=== PATIENT | male | born 1955 | race Caucasian/White ===

== ENCOUNTER 2017-05-11 12:25 | Inpatient (IN) ==
--- NOTE | 2017-05-11 12:32 | Emergency Department Note ---
Disposition Clinical Impression: Suicidal ideation Depression Qualifiers: Depression Type: unspecified Qualified Code(s): F32.9 - Major depressive disorder, single episode, unspecified Disposition: Admitted As Inpatient Condition: Fair Forms: ED Satisfaction Letter Time of Disposition: 16:36 Psych HPI - General Chief Complaint: ED Psychiatric Symptoms Stated Complaint: SI Time Seen by Provider: 05/11/17 12:29 Source: patient Mode of arrival: ambulatory Limitations: no limitations Nursing Notes Reviewed: Yes Vital Signs Reviewed: Yes - History of Present Illness HPI Narrative: 62-year-old who states she is under a lot of stress is losing his job today, his mother year ago, he was kicked out of the house by other family members. The patient states he doesn't feel that he no on any further. Pt complaint: suicidal ideation, feels depressed If medical clearance, reason: psychiatric condition Onset (ago): Just [place] Duration: constant Improves with: none Worsens with: none Context: significant life stressor Alleged intoxication: No Associated Psychiatric Symptoms: depression, suicidal ideation Associated symptoms: Reports: denies other symptoms Traumatic symptoms: denies traumatic injury Treatments prior to arrival: none Self harm or harm to others: admits thoughts of self harm - Related Data Home Medications Medication Instructions Recorded Confirmed ALPRAZolam [Xanax 1 MG Tablet] 1 mg PO TID PRN 05/11/17 05/11/17 BuPROPion XL (24 HR) [Wellbutrin 150 mg PO DAILY 05/11/17 05/11/17 XL] Carisoprodol [Soma] 350 mg PO BID 05/11/17 05/11/17 Chlorthalidone 25 mg PO DAILY 05/11/17 05/11/17 Cholecalciferol (Vitamin D3) 4,000 unit PO DAILY 05/11/17 05/11/17 [Vitamin D3] Ginkgo Biloba 120 mg PO DAILY 05/11/17 05/11/17 HYDROcodone/Acet 5/325 mg [[place] 1 tab PO BID PRN 05/11/17 05/11/17 5-325 mg] Lisinopril/Hydrochlorothiazide 1 each PO BID 05/11/17 05/11/17 [Zestoretic 20-12.5 mg Tablet] [place]-3/Dha/Epa/Fish Oil [Fish Oil 1,000 mg PO DAILY 05/11/17 05/11/17 1,000 mg Softgel] Zolpidem [Ambien] 10 mg PO HS 05/11/17 05/11/17 amLODIPine [Norvasc] 5 mg PO DAILY 05/11/17 05/11/17 Allergies Allergy/AdvReac Type Severity Reaction Status Date / Time Penicillins [PCN] Allergy See Unverified 04/08/16 14:37 Comments All systems ED: reviewed and negative except as stated. Constitutional: Denies: fever, chills, weakness, weight change Eyes: Denies: eye pain, eye discharge, vision change ENT ED: Denies: ear pain, throat pain, dental pain, hearing loss, epistaxis, congestion, dysphagia Cardiovascular: Denies: chest pain, palpitations, dyspnea on exertion, edema, syncope Respiratory: Denies: cough, dyspnea, wheezes, hemoptysis, stridor Gastrointestinal: Denies: abdominal pain, nausea, vomiting, diarrhea, constipation, hematemesis, melena, hematochezia Genitourinary: Denies: urgency, dysuria, frequency, hematuria Musculoskeletal: Denies: back pain, neck pain, arthralgia, myalgia Integumentary: Denies: rash, abrasion, lesions Neurological: Denies: headache, weakness, numbness, paresthesias, confusion, abnormal gait, vertigo Psychiatric: Reports: depression, suicidal thoughts. Denies: anxiety, homicidal thoughts, auditory hallucinations, visual hallucinations Endocrine: Denies: fatigue Hematological/Lymphatic: Denies: easy bleeding, easy bruising Allergic/Immunologic: Denies: facial swelling, urticaria Past Medical History - Past Medical History Medical history: Reports: hypertension - Social History Smoking Status: Never smoker Alcohol use: Reports: occasionally Drug use: Reports: none Physical Exam - General Limitations: no limitations General appearance: alert, in no apparent distress - Head Head exam: atraumatic, normocephalic, normal inspection - Eye Eye exam: Present: normal appearance, PERRL, EOMI - ENT ENT exam: normal exam, normal oropharynx, mucous membranes moist - Neck Neck exam: Present: normal inspection, full ROM, trachea midline - Chest Chest inspection: Present: normal inspection, symmetric chest wall rise - Respiratory Respiratory exam: Present: normal lung sounds bilaterally - Cardiovascular Cardiovascular exam: Present: regular rate, normal rhythm, normal heart sounds - Abdominal Exam Abdominal exam: Present: soft, Non-Tender. Absent: tenderness, distention, guarding, rebound, rigidity - Extremities Exam Extremities exam: Present: normal inspection, full ROM. Absent: tenderness, pedal edema - Expanded Lower Extremity Exam Neurovascular/Tendon exam: Absent: motor deficit, sensory deficit, tendon deficit Gait: observed and normal - Back Exam Back exam: Present: normal inspection, full ROM. Absent: tenderness - Neurological Exam Neurological exam: Present: alert, oriented X3 - Psychiatric Psychiatric exam: Present: depressed, suicidal ideation - Skin Skin exam: Present: warm, dry, intact, normal color Course - Consultations Consultation #1: Discussed with psychiatry who will admit the patient. Time: 16:35 Vital Signs Temperature 98.3 F 05/11/17 12:26 Pulse Rate 74 05/11/17 12:26 Respiratory Rate 18 05/11/17 12:26 Blood Pressure 180/93 05/11/17 12:26 O2 Sat by Pulse Oximetry 98 05/11/17 12:26 Temperature 98.3 F 05/11/17 12:26 Pulse Rate 74 05/11/17 12:26 Respiratory Rate 18 05/11/17 12:26 Blood Pressure 180/93 05/11/17 12:26 O2 Sat by Pulse Oximetry 98 05/11/17 12:26 Oxygen Delivery Oxygen Delivery Room Air Psych - Lab Data Result diagrams: 05/11/17 13:00 05/11/17 13:00 Lab Results 05/11/17 05/11/17 05/11/17 Range/Units 13:00 13:00 13:29 WBC 9.6 (4.3-11.1) K/mcL RBC 4.91 (4.19-5.50) M/mcL Hgb 15.0 (12.9-16.9) g/dL Hct 43.8 (37.5-50.1) % MCV 89.2 (83.0-100.0) fL MCH 30.5 (28.0-33.3) pg MCHC 34.2 (31.6-35.5) g/dL RDW 12.5 (11.5-14.5) % Plt Count 246 (140-400) K/mcL MPV 8.5 L (9.4-12.4) fL Immature Gran % 0.6 (0-4) % Seg Neutrophils % 76.3 % Lymphocytes % 15.2 % Monocytes % 6.8 % Eosinophils % 0.4 % Basophils % 0.7 % Neutrophils # 7.3 (1.6-8.9) K/mcL Lymphocytes # 1.5 (0.6-4.6) K/mcL Monocytes # 0.7 (0.0-1.3) K/mcL Eosinophils # 0.0 (0.0-0.6) K/mcL Basophils # 0.1 (0.0-0.2) K/mcL Sodium 133 L (136-145) mEq/L Potassium 3.7 (3.5-4.5) mEq/L Chloride 98 (98-109) mEq/L Carbon Dioxide 26 (19-29) mEq/L BUN 10 (8-26) mg/dL Creatinine 0.83 (0.72-1.25) mg/dL Est GFR ( Amer) > 60 (> 60) Est GFR (Non-Af Amer) > 60 (> 60) BUN/Creatinine Ratio 12 (6-26) Glucose 105 H (70-99) mg/dL Calculated Osmolality 275 L (280-300) Calcium 9.9 (8.6-10.8) mg/dL Urine Color Yellow (Yellow) Urine Clarity Cloudy A (Clear) Urine pH 7.0 (5.0-8.0) pH Units Ur Specific [place] 1.015 (1.010-1.025) Urine Protein Negative (Neg-Trace) mg/dL Urine Glucose (UA) Normal (Normal) mg/dL Urine Ketones Negative (Negative) mg/dL Urine Blood Negative (Negative) Urine Nitrite Negative (Negative) Urine Bilirubin Negative (Negative) Urine Urobilinogen Normal (Normal) mg/dL Ur Leukocyte Esterase Negative (Negative) Urine Microscopic RBC 0-3 (0-3) per hpf Urine Microscopic WBC 0-3 (0-3) per hpf Ur Squamous Epith Cells None Seen (None-Few) per lpf Urine Bacteria None Seen (None-Few) per hpf Hyaline Casts None Seen (None-Few) per lpf Salicylates < 5.0 L (15-30) mg/dL Urine Opiates Screen (Rhfmne=622) ng/mL Acetaminophen 6.0 L (10-30) mcg/mL Ur Barbiturates Screen (Bepvyh=469) ng/mL Ur Phencyclidine Scrn (Cutoff=25) ng/mL Ur Amphetamines Screen (Rxcfyv=4041) ng/mL U Benzodiazepines Scrn (Xzipzb=430) ng/mL Urine Cocaine Screen (Cutoff= 300) ng/mL U Marijuana (THC) Screen (Cutoff = 50) ng/mL Ethyl Alcohol < 10 (0-10) mg/dL 05/11/17 Range/Units 13:29 WBC (4.3-11.1) K/mcL RBC (4.19-5.50) M/mcL Hgb (12.9-16.9) g/dL Hct (37.5-50.1) % MCV (83.0-100.0) fL MCH (28.0-33.3) pg MCHC (31.6-35.5) g/dL RDW (11.5-14.5) % Plt Count (140-400) K/mcL MPV (9.4-12.4) fL Immature Gran % (0-4) % Seg Neutrophils % % Lymphocytes % % Monocytes % % Eosinophils % % Basophils % % Neutrophils # (1.6-8.9) K/mcL Lymphocytes # (0.6-4.6) K/mcL Monocytes # (0.0-1.3) K/mcL Eosinophils # (0.0-0.6) K/mcL Basophils # (0.0-0.2) K/mcL Sodium (136-145) mEq/L Potassium (3.5-4.5) mEq/L Chloride (98-109) mEq/L Carbon Dioxide (19-29) mEq/L BUN (8-26) mg/dL Creatinine (0.72-1.25) mg/dL Est GFR ( Amer) (> 60) Est GFR (Non-Af Amer) (> 60) BUN/Creatinine Ratio (6-26) Glucose (70-99) mg/dL Calculated Osmolality (280-300) Calcium (8.6-10.8) mg/dL Urine Color (Yellow) Urine Clarity (Clear) Urine pH (5.0-8.0) pH Units Ur Specific [place] (1.010-1.025) Urine Protein (Neg-Trace) mg/dL Urine Glucose (UA) (Normal) mg/dL Urine Ketones (Negative) mg/dL Urine Blood (Negative) Urine Nitrite (Negative) Urine Bilirubin (Negative) Urine Urobilinogen (Normal) mg/dL Ur Leukocyte Esterase (Negative) Urine Microscopic RBC (0-3) per hpf Urine Microscopic WBC (0-3) per hpf Ur Squamous Epith Cells (None-Few) per lpf Urine Bacteria (None-Few) per hpf Hyaline Casts (None-Few) per lpf Salicylates (15-30) mg/dL Urine Opiates Screen Positive H (Rrbqsx=544) ng/mL Acetaminophen (10-30) mcg/mL Ur Barbiturates Screen Negative (Aqjtyj=114) ng/mL Ur Phencyclidine Scrn Negative (Cutoff=25) ng/mL Ur Amphetamines Screen Negative (Foocix=2469) ng/mL U Benzodiazepines Scrn Positive H (Dfskmv=071) ng/mL Urine Cocaine Screen Negative (Cutoff= 300) ng/mL U Marijuana (THC) Screen Negative (Cutoff = 50) ng/mL Ethyl Alcohol (0-10) mg/dL Psychiatric Medical Clearance - Medical Clearance Checklist Does the patient have a NEW psychiatric condition?: No Any abnormalities indicating possible medical illness?: No Any history of medical issues?: No Medical History: No Social History Section defined Any abnormal vital signs prior to transfer?: Yes Current Vitals: Last Vital Signs Temp 98.3 F 05/11/17 12:26 Pulse 74 05/11/17 12:26 Resp 18 05/11/17 12:26 BP 180/93 05/11/17 12:26 Pulse Ox 98 05/11/17 12:26 Is the patient intoxicated or cognitively impaired?: No Psychiatric Lab Panel: Drug Levels and Toxicity 05/11/17 05/11/17 13:00 13:29 Urine Opiates Screen Positive H Acetaminophen 6.0 L Ur Barbiturates Screen Negative Ur Phencyclidine Scrn Negative Ur Amphetamines Screen Negative U Benzodiazepines Scrn Positive H Urine Cocaine Screen Negative U Marijuana (THC) Screen Negative Ethyl Alcohol < 10 Any abnormalities on the physical exam?: No Any abnormal labs?: No Abnormal Labs: Abnormal lab results MPV 8.5 fL (9.4-12.4) L 05/11/17 13:00 Sodium 133 mEq/L (136-145) L 05/11/17 13:00 Glucose 105 mg/dL (70-99) H 05/11/17 13:00 Calculated Osmolality 275 (280-300) L 05/11/17 13:00 Urine Clarity Cloudy (Clear) A 05/11/17 13:29 Salicylates < 5.0 mg/dL (15-30) L 05/11/17 13:00 Urine Opiates Screen Positive ng/mL (Pnfofc=235) H 05/11/17 13:29 Acetaminophen 6.0 mcg/mL (10-30) L 05/11/17 13:00 U Benzodiazepines Scrn Positive ng/mL (Injtbr=606) H 05/11/17 13:29 Does the patient require durable medical equiptment?: No Is the patient ambulatory?: Yes Is the patient a fall risk?: No Has the patient been medically cleared?: Yes Any acute medical condition require Tx prior to transfer?: No Statement of Medical Clearance: I have evaluated the patient, reviewed diagnostic information, and certify that the patient's medical condition is sufficiently stable that transfer to the psychiatric unit does not pose a significant risk of deterioration.
[2017-05-11 13:07] LABS: Basophils # 0.1 K/mcL (0.0-0.2); Basophils % 0.7 %; Eosinophils % 0.4 %; Hematocrit 43.8 % (37.5-50.1); Immature Granulocytes % 0.6 % (0-4); Lymphocytes # 1.5 K/mcL (0.6-4.6); Lymphocytes % 15.2 %; Mean Corpuscular HGB Conc 34.2 g/dL (31.6-35.5); Mean Corpuscular Hemoglobin 30.5 pg (28.0-33.3); Mean Corpuscular Volume 89.2 fL (83.0-100.0); Mean Platelet Volume 8.5 fL (9.4-12.4); Monocytes # 0.7 K/mcL (0.0-1.3); Monocytes % 6.8 %; Neutrophils # 7.3 K/mcL (1.6-8.9); Platelet Count 246 K/mcL (140-400); Red Blood Count 4.91 M/mcL (4.19-5.50); Red Cell Distribution Width 12.5 % (11.5-14.5); Segmented Neutrophils % 76.3 %
[2017-05-11 13:25] LABS: BUN/Creatinine Ratio 12 (6-26); Blood Urea Nitrogen 10 mg/dL (8-26); Calcium 9.9 mg/dL (8.6-10.8); Carbon Dioxide 26 mEq/L (19-29); Chloride 98 mEq/L (98-109); Glucose 105 mg/dL (70-99); Osmolality,Calculated 275 (280-300); Potassium 3.7 mEq/L (3.5-4.5); Sodium 133 mEq/L (136-145); eGFR For African Americans > 60 (> 60); eGFR For Non-African Americans > 60 (> 60)
[2017-05-11 13:37] LABS: Ethanol < 10 mg/dL (0-10); Salicylate < 5.0 mg/dL (15-30)
[2017-05-11 14:12] LABS: Bilirubin,Urine Negative (Negative); Blood,Urine Negative (Negative); Clarity,Urine Cloudy (Clear); Color,Urine Yellow (Yellow); Glucose,Urine (UA) Normal (Normal); Ketones,Urine Negative (Negative); Leukocyte Esterase,Urine Negative (Negative); Nitrite,Urine Negative (Negative); Protein,Urine Negative (Neg-Trace); Specific Gravity,Urine 1.015 (1.010-1.025); Urobilinogen,Urine Normal (Normal)
[2017-05-11 14:14] LABS: Bacteria,Urine None Seen per hpf (None-Few); Hyaline Casts,Urine None Seen per lpf (None-Few); RBC,Urine 0-3 per hpf (0-3); Squamous Epithelial Cell,Urine None Seen per lpf (None-Few); WBC,Urine 0-3 per hpf (0-3)
[2017-05-11 14:19] LABS: Amphetamine Screen,Urine Negative ng/mL (Cutoff=1000); Barbiturate Screen,Urine Negative ng/mL (Cutoff=200); Benzodiazepines Screen,Urine Positive ng/mL (Cutoff=200); Cannabinoid Screen,Urine Negative ng/mL (Cutoff = 50); Cocaine Screen,Urine Negative ng/mL (Cutoff= 300); Opiate Screen,Urine Positive ng/mL (Cutoff=300); Phencyclidine Screen,Urine Negative ng/mL (Cutoff=25)
[2017-05-11] MEDS ORDERED: ALPRAZolam 1 MG TABLET PO ONE (18:25)
[2017-05-11] MEDS ORDERED: *HR* HYDROcodone/Acet 5/325 mg TABLET PO ONE (18:26)
[2017-05-11] MEDS ORDERED: MOM Conc 10 ML UD.LIQ PO PRN (21:01)
[2017-05-11] MEDS ORDERED: Acetaminophen 325 MG TABLET PO PRN (21:01)
[2017-05-11] MEDS ORDERED: traZODone 50 MG TABLET PO PRN (21:01)
[2017-05-11] MEDS ORDERED: *HR* LORazepam 2 MG/ML VIAL IM PRN (21:01)
[2017-05-11] MEDS ORDERED: *HR* LORazepam 1 MG TABLET PO PRN (21:01)
[2017-05-11] MEDS ORDERED: hydrOXYzine pamoate 25 MG CAPSULE PO PRN (21:01)
[2017-05-11] MEDS ORDERED: Mag Hydrox/Al Hydrox/Simeth 30 ML UDC PO PRN (21:01)
[2017-05-11] MEDS ORDERED: Haloperidol Lactate 5 MG/ML VIAL IM PRN (21:01)
[2017-05-11] MEDS: ALPRAZolam 1 MG TABLET PO PRN (21:56)
[2017-05-11] MEDS: Lisinopril-HCTZ 20-12.5mg TABLET PO SCH (21:56)
[2017-05-12] MEDS: BuPROPion XL (24 HR) 150 MG TABLET PO SCH (08:45)
[2017-05-12] MEDS: amLODIPine 5 MG TABLET PO SCH (08:45)
[2017-05-12] MEDS: Lisinopril-HCTZ 20-12.5mg TABLET PO SCH ×2 (08:45→20:56)
[2017-05-12] MEDS: Cholecalciferol (D-3) 1,000 UNIT TABLET PO SCH (08:45)
[2017-05-12] MEDS: GINKGO BILOBA 120 MG PO SCH (08:46)
[2017-05-12] MEDS: Patient Taking Own Medication 1 EACH PO SCH (08:46)
[2017-05-12] MEDS: Carisoprodol 350 MG TABLET PO SCH ×2 (08:46→20:56)
[2017-05-12] MEDS: *HR* HYDROcodone/Acet 5/325 mg TABLET PO PRN (12:09)
--- NOTE | 2017-05-12 13:46 | Psychiatry History & Physical ---
Date of Encounter: 05/12/17 Time of Encounter: 12:40 History of Present Illness Patient Stated Chief Complaint: Suicidal ideation Medicare Admission Attestation: For traditional Medicare patients the provided hospital inpatient services are reasonable and necessary and in the case of services not specified as inpatient -only under 42 CFR 419.22 (n), that they are appropriately provided as inpatient services in accordance 42 CFR 412.3. For Critical Access Hospital the patient may reasonably be expected to be discharged or transferred to a hospital within 96 hours after admission to the Critical Access Hospital. Admitted From: Emergency Dept History of Present Illness: Mr. Cespedes is a 62 year old male admitted from the emergency department for suicidal ideation. Patient has a long history of depression and treatment with medication, currently prescribed by PCP. Patient reported multiple stressors related to finances, living situation and work stress. He is also dealing with chronic back pain due to degenerative arthritis. Patient reports increasing depression, low energy, sense of hopelessness and suicidal ideation. His PCP referred him to the hospital for evaluation. Past Med Surg Social Fam HX - Past Medical History Medical history: hypertension - Past Psychiatric History Psychiatric history: Reports: anxiety, depression - Social History Smoking Status: Never smoker Smokeless Tobacco Status: No Alcohol use: occasionally Drug use: none - Family History Mother Hx Family Cancer: Yes (bladder) Medications & Allergies ALPRAZolam [Xanax 1 MG Tablet] 1 mg PO TID PRN 05/11/17 [History] BuPROPion XL (24 HR) [Wellbutrin XL] 150 mg PO DAILY 05/11/17 [History] Carisoprodol [Soma] 350 mg PO BID 05/11/17 [History] Chlorthalidone 25 mg PO DAILY 05/11/17 [History] Cholecalciferol (Vitamin D3) [Vitamin D3] 4,000 unit PO DAILY 05/11/17 [History] Ginkgo Biloba 120 mg PO DAILY 05/11/17 [History] HYDROcodone/Acet 5/325 mg [[place] 5-325 mg] 1 tab PO BID PRN 05/11/17 [History] Lisinopril/Hydrochlorothiazide [Zestoretic 20-12.5 mg Tablet] 1 each PO BID [History] [place]-3/Dha/Epa/Fish Oil [Fish Oil 1,000 mg Softgel] 1,000 mg PO DAILY 05/11/17 [History] Zolpidem [Ambien] 10 mg PO HS 05/11/17 [History] amLODIPine [Norvasc] 5 mg PO DAILY 05/11/17 [History] 3 Allergy/AdvReac Type Severity Reaction Status Date / Time Penicillins [PCN] Allergy Itching Verified 05/11/17 18:29 Review of Systems Psychiatric: Reports: depression, suicidal ideation, hopelessness Mental Status Exam Patient orientation: Yes Person, Yes Time, Yes Place Level of alertness: Alert Patient appearance: Appropriate, Well Groomed Behavior: calm, cooperative, guarded Psychomotor activity: Normal Eye contact: Maintains Eye Contact Mood description: Depressed Affect description: congruent with mood, constricted Speech pattern: Normal rate, Normal rhythm, Normal tone, Limited Speech volume: Normal Thought process: Linear, Goal Oriented Thought content: Yes Suicidal ideation, No Homicidal ideation, No Overt delusions Perceptual disturbances: No Auditory hallucinations, No Visual hallucinations Attention span: Capable of Focused Attention Memory description: Grossly Intact Patient reliability: Reliable Historian Intelligence estimate: Average Judgment: Limited Insight: Partial Results - Vital Signs Vital signs: Temp Pulse Resp BP Pulse Ox 98.1 F 56 18 173/95 98 05/12/17 09:00 05/12/17 09:00 05/12/17 09:00 05/12/17 09:00 05/11/17 12:26 - Labs Labs: Laboratory Last Values WBC 9.6 K/mcL (4.3-11.1) 05/11/17 13:00 RBC 4.91 M/mcL (4.19-5.50) 05/11/17 13:00 Hgb 15.0 g/dL (12.9-16.9) 05/11/17 13:00 Hct 43.8 % (37.5-50.1) 05/11/17 13:00 MCV 89.2 fL (83.0-100.0) 05/11/17 13:00 MCH 30.5 pg (28.0-33.3) 05/11/17 13:00 MCHC 34.2 g/dL (31.6-35.5) 05/11/17 13:00 RDW 12.5 % (11.5-14.5) 05/11/17 13:00 Plt Count 246 K/mcL (140-400) 05/11/17 13:00 MPV 8.5 fL (9.4-12.4) L 05/11/17 13:00 Immature Gran % 0.6 % (0-4) 05/11/17 13:00 Seg Neutrophils % 76.3 % 05/11/17 13:00 Lymphocytes % 15.2 % 05/11/17 13:00 Monocytes % 6.8 % 05/11/17 13:00 Eosinophils % 0.4 % 05/11/17 13:00 Basophils % 0.7 % 05/11/17 13:00 Neutrophils # 7.3 K/mcL (1.6-8.9) 05/11/17 13:00 Lymphocytes # 1.5 K/mcL (0.6-4.6) 05/11/17 13:00 Monocytes # 0.7 K/mcL (0.0-1.3) 05/11/17 13:00 Eosinophils # 0.0 K/mcL (0.0-0.6) 05/11/17 13:00 Basophils # 0.1 K/mcL (0.0-0.2) 05/11/17 13:00 Sodium 133 mEq/L (136-145) L 05/11/17 13:00 Potassium 3.7 mEq/L (3.5-4.5) 05/11/17 13:00 Chloride 98 mEq/L (98-109) 05/11/17 13:00 Carbon Dioxide 26 mEq/L (19-29) 05/11/17 13:00 BUN 10 mg/dL (8-26) 05/11/17 13:00 Creatinine 0.83 mg/dL (0.72-1.25) 05/11/17 13:00 Est GFR ( Amer) > 60 (> 60) 05/11/17 13:00 Est GFR (Non-Af Amer) > 60 (> 60) 05/11/17 13:00 BUN/Creatinine Ratio 12 (6-26) 05/11/17 13:00 Glucose 105 mg/dL (70-99) H 05/11/17 13:00 Calculated Osmolality 275 (280-300) L 05/11/17 13:00 Calcium 9.9 mg/dL (8.6-10.8) 05/11/17 13:00 Urine Color Yellow (Yellow) 05/11/17 13:29 Urine Clarity Cloudy (Clear) A 05/11/17 13:29 Urine pH 7.0 pH Units (5.0-8.0) 05/11/17 13:29 Ur Specific [place] 1.015 (1.010-1.025) 05/11/17 13:29 Urine Protein Negative mg/dL (Neg-Trace) 05/11/17 13:29 Urine Glucose (UA) Normal mg/dL (Normal) 05/11/17 13:29 Urine Ketones Negative mg/dL (Negative) 05/11/17 13:29 Urine Blood Negative (Negative) 05/11/17 13:29 Urine Nitrite Negative (Negative) 05/11/17 13:29 Urine Bilirubin Negative (Negative) 05/11/17 13:29 Urine Urobilinogen Normal mg/dL (Normal) 05/11/17 13:29 Ur Leukocyte Esterase Negative (Negative) 05/11/17 13:29 Urine Microscopic RBC 0-3 per hpf (0-3) 05/11/17 13:29 Urine Microscopic WBC 0-3 per hpf (0-3) 05/11/17 13:29 Ur Squamous Epith Cells None Seen per lpf (None-Few) 05/11/17 13:29 Urine Bacteria None Seen per hpf (None-Few) 05/11/17 13:29 Hyaline Casts None Seen per lpf (None-Few) 05/11/17 13:29 Salicylates < 5.0 mg/dL (15-30) L 05/11/17 13:00 Urine Opiates Screen Positive ng/mL (Ywhewn=407) H 05/11/17 13:29 Acetaminophen 6.0 mcg/mL (10-30) L 05/11/17 13:00 Ur Barbiturates Screen Negative ng/mL (Vcosnc=439) 05/11/17 13:29 Ur Phencyclidine Scrn Negative ng/mL (Cutoff=25) 05/11/17 13:29 Ur Amphetamines Screen Negative ng/mL (Cwpxik=1385) 05/11/17 13:29 U Benzodiazepines Scrn Positive ng/mL (Ulggbb=317) H 05/11/17 13:29 Urine Cocaine Screen Negative ng/mL (Cutoff= 300) 05/11/17 13:29 U Marijuana (THC) Screen Negative ng/mL (Cutoff = 50) 05/11/17 13:29 Ethyl Alcohol < 10 mg/dL (0-10) 05/11/17 13:00 Assessment and Plan (1) Severe recurrent major depression without psychotic features Current visit: Yes Status: Acute Plan: Admit inpatient for safety and stabilization, Close observation, Suicide Precautions per unit protocol, Encourage participation in unit milieu, Group Therapy, Monitor sleep, Monitor appetite Risks, benefits, side effects, alternatives discussed w/pt: Yes Patient agreeable to treatment: Yes (2) Benzodiazepine dependence Current visit: Yes Status: Acute Plan: Admit inpatient for safety and stabilization, Close observation, Suicide Precautions per unit protocol, Encourage participation in unit milieu, Group Therapy, Monitor sleep, Monitor appetite Risks, benefits, side effects, alternatives discussed w/pt: Yes Patient agreeable to treatment: Yes
[2017-05-12] MEDS: ALPRAZolam 1 MG TABLET PO PRN (20:57)
[2017-05-13] MEDS: amLODIPine 5 MG TABLET PO SCH (08:31)
[2017-05-13] MEDS: Lisinopril-HCTZ 20-12.5mg TABLET PO SCH ×2 (08:31→20:38)
[2017-05-13] MEDS: BuPROPion XL (24 HR) 150 MG TABLET PO SCH (08:31)
[2017-05-13] MEDS: Carisoprodol 350 MG TABLET PO SCH ×2 (08:31→20:39)
[2017-05-13] MEDS: Cholecalciferol (D-3) 1,000 UNIT TABLET PO SCH (08:31)
[2017-05-13] MEDS: GINKGO BILOBA 120 MG PO SCH (08:33)
[2017-05-13] MEDS: Patient Taking Own Medication 1 EACH PO SCH (08:33)
--- NOTE | 2017-05-13 11:10 | Psychiatry Progress Note ---
Date of Encounter: 05/13/17 Time of Encounter: 11:08 Subjective Interval history: Patient seen and evaluated this morning patient reports his mood as "better". Patient reports that he is able to focus better and reports that he is getting out of his "slump" patient reports that he has been on Wellbutrin for years and reports that works well for him patient was somatic and continued to complain of pain the patient was redirected to psychiatric symptoms patient reports that he could not sleep last night because of his roommate and reports that he had trouble sleeping due to that patient reports that he is in pain and requested his Percocet patient was redirected to asked this to medical provider. Patient reports anxiety secondary to his pain at this time patient denied suicidal or homicidal ideations. Patient reports no current issues or side effects with medication patient has been med compliant and has been eating his meals and been out for groups. Review of Systems Psychiatric: Reports: depression, suicidal ideation, hopelessness Objective: Exam Patient orientation: Yes Person, Yes Time, Yes Place, Yes Circumstance Level of alertness: Alert Patient appearance: Appropriate Behavior: nervous, anxious Psychomotor activity: Normal Eye contact: Maintains Eye Contact Mood description: Depressed, Anxious Affect description: congruent with mood Speech pattern: Normal rate Speech volume: Normal Thought process: Intact Thought content: Yes Intact Judgment: Fair Insight: Partial Results - Vital Signs Vital Signs: Temp Pulse Resp BP Pulse Ox 98.0 F 66 18 185/93 98 05/13/17 08:58 05/13/17 08:58 05/13/17 08:58 05/13/17 08:58 05/11/17 12:26 Assessment and Plan (1) Depression Current visit: Yes Status: Acute Plan: Continue hospitalization, Suicide Precautions per unit protocol, Encourage participation in unit milieu, Group Therapy, Monitor sleep, Monitor appetite Risks, benefits, side effects, alternatives discussed w/pt: Yes Patient agreeable to treatment: Yes Qualifiers: Depression Type: major depressive disorder Active/Remission status: currently active Major depression episode severity: moderate Qualified Code( s): F32.9 - Major depressive disorder, single episode, unspecified Consult Discharge Plan - Plan Referrals: The, [facility] of [facility]re [facility] [Other] (Deidre will be able to re- start services with you. She is currently out of the office. She requests you call her on 05/17/2017, and she will get you scheduled for a mental health counseling session.) [facility] [place] [Outside] - 06/07/17 2:15 pm (The above appointment is with Dr. Jones for primary health care and medication management services. Please arrive 15 minutes early for your new patient appointment, and bring the following items with you: insurance card (if you do not have insurance bring proof of income to apply for the sliding fee scale), photo ID, and any medication you take in the original bottles. If you are unable to bring these items, your appointment will be rescheduled. If you are unable to keep this appointment, 24 hour business notice of cancellation is expected. If you miss your new patient appointment, you cannot be re-scheduled in this practice for 3 months. This practice does not prescribe narcotics or see [facility] [facility] benefit recipients. ) [facility] [employer] [facility] [place] [Outside] - 05/31/17 10:30 am (The above appointment is with Dr. Sonal Camp for outpatient psychiatric assessment and medication management services. Please arrive 15 minutes early to complete paperwork. Please bring your insurance card, photo ID and medications in their original bottles. If you do not have insurance, bring proof of income to apply for the sliding fee scale. If you are unable to keep this appointment, 24 hour business notice of cancellation is expected. This is the first available appointment. You may contact the office regularly to check for cancellations that may allow you to be seen sooner. )
[2017-05-13] MEDS: *HR* HYDROcodone/Acet 5/325 mg TABLET PO PRN (17:53)
[2017-05-13] MEDS: ALPRAZolam 1 MG TABLET PO PRN (20:38)
[2017-05-14] MEDS: BuPROPion XL (24 HR) 150 MG TABLET PO SCH (09:03)
[2017-05-14] MEDS: amLODIPine 5 MG TABLET PO SCH ×2 (09:03→17:23)
[2017-05-14] MEDS: Carisoprodol 350 MG TABLET PO SCH ×2 (09:03→20:22)
[2017-05-14] MEDS: Lisinopril-HCTZ 20-12.5mg TABLET PO SCH ×2 (09:03→20:20)
[2017-05-14] MEDS: Cholecalciferol (D-3) 1,000 UNIT TABLET PO SCH (09:04)
[2017-05-14] MEDS: Patient Taking Own Medication 1 EACH PO SCH (09:34)
[2017-05-14] MEDS: GINKGO BILOBA 120 MG PO SCH (10:22)
[2017-05-14] MEDS ORDERED: cloNIDine HCl 0.1 MG TABLET PO ONE (12:52)
--- NOTE | 2017-05-14 17:04 | Psychiatry Progress Note ---
Date of Encounter: 05/14/17 Time of Encounter: 17:02 Subjective Interval history: Pt seen and evaluated. Pt reports he is feeling better since admission, he reports "its like a awakeneing, i can see alot clearer". Reports no issues wiht medication and reports he plans on using his coping skills. denied SI/HI denies and thoughts of self harm. Objective: Exam Patient orientation: Yes Person, Yes Time, Yes Place Level of alertness: Alert Behavior: calm, cooperative Psychomotor activity: Normal Eye contact: Maintains Eye Contact Mood description: Euthymic/stable Affect description: congruent with mood Speech pattern: Normal rate Speech volume: Normal Thought process: Intact Thought content: Yes Intact Judgment: Fair Insight: Full Results - Vital Signs Vital Signs: Temp Pulse Resp BP Pulse Ox 97.8 F 59 16 180/100 98 05/14/17 08:05 05/14/17 08:05 05/14/17 08:05 05/14/17 08:05 05/11/17 12:26 Assessment and Plan (1) Depression Current visit: Yes Status: Acute Additional Plan: contnue meds Risks, benefits, side effects, alternatives discussed w/pt: Yes Patient agreeable to treatment: Yes Qualifiers: Depression Type: major depressive disorder Active/Remission status: currently active Major depression episode severity: moderate Qualified Code( s): F32.9 - Major depressive disorder, single episode, unspecified Consult Discharge Plan - Plan Referrals: The, [facility] of Deidre [facility]ro [Other] (Deidre will be able to re- start services with you. She is currently out of the office. She requests you call her on 05/17/2017, and she will get you scheduled for a mental health counseling session.) [facility] [place] [Outside] - 06/07/17 2:15 pm (The above appointment is with Dr. Jones for primary health care and medication management services. Please arrive 15 minutes early for your new patient appointment, and bring the following items with you: insurance card (if you do not have insurance bring proof of income to apply for the sliding fee scale), photo ID, and any medication you take in the original bottles. If you are unable to bring these items, your appointment will be rescheduled. If you are unable to keep this appointment, 24 hour business notice of cancellation is expected. If you miss your new patient appointment, you cannot be re-scheduled in this practice for 3 months. This practice does not prescribe narcotics or see [facility] benefit recipients. ) David Nguyen [facility] Rn Lactation Consultant [place] [Outside] - 05/31/17 10:30 am (The above appointment is with Dr. Sonal Camp for outpatient psychiatric assessment and medication management services. Please arrive 15 minutes early to complete paperwork. Please bring your insurance card, photo ID and medications in their original bottles. If you do not have insurance, bring proof of income to apply for the sliding fee scale. If you are unable to keep this appointment, 24 hour business notice of cancellation is expected. This is the first available appointment. You may contact the office regularly to check for cancellations that may allow you to be seen sooner. )
[2017-05-14] MEDS: ALPRAZolam 1 MG TABLET PO PRN (20:20)
[2017-05-15] MEDS: Lisinopril-HCTZ 20-12.5mg TABLET PO SCH ×2 (08:25→20:37)
[2017-05-15] MEDS: amLODIPine 5 MG TABLET PO SCH ×2 (08:26)
[2017-05-15] MEDS: Cholecalciferol (D-3) 1,000 UNIT TABLET PO SCH (08:26)
[2017-05-15] MEDS: BuPROPion XL (24 HR) 150 MG TABLET PO SCH (08:26)
[2017-05-15] MEDS: GINKGO BILOBA 120 MG PO SCH (08:32)
[2017-05-15] MEDS: Patient Taking Own Medication 1 EACH PO SCH (08:32)
[2017-05-15] MEDS: Carisoprodol 350 MG TABLET PO SCH ×2 (08:32→21:55)
--- NOTE | 2017-05-15 14:18 | Psychiatry Progress Note ---
Date of Encounter: 05/15/17 Time of Encounter: 14:16 Subjective Interval history: Patient seen and evaluated this morning. Patient did not seem to be in any acute distress during the evaluation. Patient reports he is doing "okay". Patient reports he still having some mild depression but reports that he is looking forward to talking to his brother morning getting outpatient counseling services. We discussed patient's anxiety depression and pain discussed starting a medication called Cymbalta since patient is not on any antidepressant medication patient was very agreeable to this and reports feeling he does need some help with his anxiety and depression on patient denied any suicidal or homicidal ideations patient denied any thoughts of self- harm patient has been med compliant K has been seen interacting with other peers and has been going to group therapy patient reports his sleep and appetite is fair patient reported no current side effects with current medication. Review of Systems Psychiatric: Reports: depression, anxiety Objective: Exam Patient orientation: Yes Person, Yes Time, Yes Place Level of alertness: Alert Patient appearance: Appropriate Behavior: nervous, anxious Psychomotor activity: Normal Eye contact: Maintains Eye Contact Mood description: Depressed Affect description: flat Speech pattern: Normal rate Speech volume: Normal Thought process: Intact Thought content: Yes Intact Judgment: Fair Insight: Full Results - Vital Signs Vital Signs: Temp Pulse Resp BP Pulse Ox 97.8 F 60 18 150/87 98 05/15/17 09:00 05/15/17 09:00 05/15/17 09:00 05/15/17 09:00 05/11/17 12:26 Assessment and Plan (1) Depression Current visit: Yes Status: Acute Additional Plan: 05/15:start cymbalta for depression and pain contnue meds Risks, benefits, side effects, alternatives discussed w/pt: Yes Patient agreeable to treatment: Yes Qualifiers: Depression Type: major depressive disorder Active/Remission status: currently active Major depression episode severity: moderate Qualified Code( s): F32.9 - Major depressive disorder, single episode, unspecified Consult Discharge Plan - Plan Referrals: [facility], [facility] [Other] (Deidre will be able to re- start services with you. She is currently out of the office. She requests you call her on 05/17/2017, and she will get you scheduled for a mental health counseling session.) [facility] [place] [Outside] - 06/07/17 2:15 pm (The above appointment is with Dr. Jones for primary health care and medication management services. Please arrive 15 minutes early for your new patient appointment, and bring the following items with you: insurance card (if you do not have insurance bring proof of income to apply for the sliding fee scale), photo ID, and any medication you take in the original bottles. If you are unable to bring these items, your appointment will be rescheduled. If you are unable to keep this appointment, 24 hour business notice of cancellation is expected. If you miss your new patient appointment, you cannot be re-scheduled in this practice for 3 months. This practice does not prescribe narcotics or see [facility] benefit recipients. ) [facility] [place] [Outside] - 05/31/17 10:30 am (The above appointment is with Dr. Sonal Camp for outpatient psychiatric assessment and medication management services. Please arrive 15 minutes early to complete paperwork. Please bring your insurance card, photo ID and medications in their original bottles. If you do not have insurance, bring proof of income to apply for the sliding fee scale. If you are unable to keep this appointment, 24 hour business notice of cancellation is expected. This is the first available appointment. You may contact the office regularly to check for cancellations that may allow you to be seen sooner. )
[2017-05-15] MEDS: ALPRAZolam 1 MG TABLET PO PRN (20:37)
[2017-05-16] MEDS: Carisoprodol 350 MG TABLET PO SCH ×2 (08:39→21:08)
[2017-05-16] MEDS: Cholecalciferol (D-3) 1,000 UNIT TABLET PO SCH (08:39)
[2017-05-16] MEDS: Lisinopril-HCTZ 20-12.5mg TABLET PO SCH ×2 (08:40→21:08)
[2017-05-16] MEDS: BuPROPion XL (24 HR) 150 MG TABLET PO SCH (08:40)
[2017-05-16] MEDS: amLODIPine 5 MG TABLET PO SCH ×2 (08:40→08:41)
[2017-05-16] MEDS: GINKGO BILOBA 120 MG PO SCH (08:42)
[2017-05-16] MEDS: Patient Taking Own Medication 1 EACH PO SCH (08:42)
--- NOTE | 2017-05-16 14:43 | Psychiatry Progress Note ---
Date of Encounter: 05/16/17 Time of Encounter: 14:41 Subjective Interval history: Patient seen and evaluated this morning. Patient was very calm and cooperative during the evaluation. When asked patient how he fell his new medication was doing patient responded "I am smiling today". Patient reports that he feels like the medication is helping him and reports that he is hopeful that will help with ongoing pain as well. Patient reports that he is not having any side effects to any medications patient has been out in common milieu patient's sleep and appetite has been normal. Review of Systems Psychiatric: Reports: anxiety Objective: Exam Patient orientation: Yes Person, Yes Time, Yes Place, Yes Circumstance Level of alertness: Alert Patient appearance: Appropriate Behavior: calm, anxious Psychomotor activity: Normal Eye contact: Maintains Eye Contact Mood description: Euthymic/stable Affect description: congruent with mood Speech pattern: Normal rate, Normal rhythm, Normal tone Speech volume: Normal Thought process: Intact Thought content: Yes Intact Judgment: Fair Insight: Partial Results - Vital Signs Vital Signs: Temp Pulse Resp BP Pulse Ox 97.6 F 67 16 150/87 98 05/16/17 09:00 05/16/17 09:00 05/16/17 09:00 05/16/17 09:00 05/11/17 12:26 Assessment and Plan (1) Depression Current visit: Yes Status: Acute Plan: Continue hospitalization, Encourage participation in unit milieu, Group Therapy, Monitor sleep, Monitor appetite Additional Plan: 05/16:increase cymbalta 05/15:start cymbalta for depression and pain contnue meds Risks, benefits, side effects, alternatives discussed w/pt: Yes Patient agreeable to treatment: Yes Qualifiers: Depression Type: major depressive disorder Active/Remission status: currently active Major depression episode severity: moderate Qualified Code( s): F32.9 - Major depressive disorder, single episode, unspecified Consult Discharge Plan - Plan Referrals: [facility], [facility] [Other] (Deidre will be able to re- start services with you. She is currently out of the office. She requests you call her on 05/17/2017, and she will get you scheduled for a mental health counseling session.) [facility] [place] [Outside] - 06/07/17 2:15 pm (The above appointment is with Dr. Jones for primary health care and medication management services. Please arrive 15 minutes early for your new patient appointment, and bring the following items with you: insurance card (if you do not have insurance bring proof of income to apply for the sliding fee scale), photo ID, and any medication you take in the original bottles. If you are unable to bring these items, your appointment will be rescheduled. If you are unable to keep this appointment, 24 hour business notice of cancellation is expected. If you miss your new patient appointment, you cannot be re-scheduled in this practice for 3 months. This practice does not prescribe narcotics or see [facility] benefit recipients. ) [facility] Rail Director [place] [Outside] - 05/31/17 10:30 am (The above appointment is with Dr. Sonal Camp for outpatient psychiatric assessment and medication management services. Please arrive 15 minutes early to complete paperwork. Please bring your insurance card, photo ID and medications in their original bottles. If you do not have insurance, bring proof of income to apply for the sliding fee scale. If you are unable to keep this appointment, 24 hour business notice of cancellation is expected. This is the first available appointment. You may contact the office regularly to check for cancellations that may allow you to be seen sooner. )
[2017-05-16] MEDS: ALPRAZolam 1 MG TABLET PO PRN (21:08)
[2017-05-17] MEDS: Lisinopril-HCTZ 20-12.5mg TABLET PO SCH (08:33)
[2017-05-17] MEDS: BuPROPion XL (24 HR) 150 MG TABLET PO SCH (08:33)
[2017-05-17] MEDS: amLODIPine 5 MG TABLET PO SCH (08:33)
[2017-05-17] MEDS: Cholecalciferol (D-3) 1,000 UNIT TABLET PO SCH (08:33)
[2017-05-17] MEDS: Carisoprodol 350 MG TABLET PO SCH (08:36)
[2017-05-17] MEDS: Patient Taking Own Medication 1 EACH PO SCH (08:36)
[2017-05-17] MEDS: GINKGO BILOBA 120 MG PO SCH (08:36)
[2017-05-17 09:28] VITALS: BP 150/86
--- NOTE | 2017-05-17 13:34 | Discharge Summary ---
Date of Encounter: 05/17/17 Time of Encounter: 13:29 Diagnosis - Discharge Diagnosis (1) Depression Priority: Primary Status: Resolved Qualifiers: Depression Type: major depressive disorder Active/Remission status: currently active Major depression episode severity: moderate Qualified Code( s): F33.1 - Major depressive disorder, recurrent, moderate Medications - Discharge Medications Prescriptions: ALPRAZolam [Xanax 1 MG Tablet] 0.5 mg PO TID PRN #45 tab PRN Reason: Anxiety amLODIPine [Norvasc] 10 mg PO DAILY #60 tab BuPROPion XL (24 HR) [Wellbutrin Xl] 150 mg PO DAILY #30 DULoxetine [Cymbalta] 30 mg PO DAILY #30 Zolpidem [Ambien] 10 mg PO HS #30 tab BuPROPion XL (24 HR) [Wellbutrin XL] 150 mg PO DAILY 05/11/17 [History] Carisoprodol [Soma] 350 mg PO BID 05/11/17 [History] Cholecalciferol (Vitamin D3) [Vitamin D3] 4,000 unit PO DAILY 05/11/17 [History] HYDROcodone/Acet 5/325 mg [[place] 5-325 mg] 1 tab PO BID PRN 05/11/17 [History] Lisinopril/Hydrochlorothiazide [Zestoretic 20-12.5 mg Tablet] 1 each PO BID [History] [place]-3/Dha/Epa/Fish Oil [Fish Oil 1,000 mg Softgel] 1,000 mg PO DAILY 05/11/17 [History] Zolpidem [Ambien] 10 mg PO HS 05/11/17 [History] ALPRAZolam [Xanax 1 MG Tablet] 0.5 mg PO TID PRN #45 tab 05/17/17 [Rx] BuPROPion XL (24 HR) [Wellbutrin Xl] 150 mg PO DAILY #30 05/17/17 [Rx] Chlorthalidone 25 mg PO DAILY tab 05/17/17 [Rx] DULoxetine [Cymbalta] 30 mg PO DAILY #30 05/17/17 [Rx] Patient Taking Own Medication 1 each PO DAILY each 05/17/17 [Rx] Zolpidem [Ambien] 10 mg PO HS #30 tab 05/17/17 [Rx] amLODIPine [Norvasc] 10 mg PO DAILY #60 tab 08/30/17 [Rx] 3 Allergy/AdvReac Type Severity Reaction Status Date / Time Penicillins [PCN] Allergy Itching Verified 05/11/17 18:29 Provider Date of admission: 05/11/17 21:01 Primary care physician: PCP NONE Consults: 05/14/17 15:49 Consult to Hospitalist [CONS] Routine Consulting Provider: Hospitalist [place] Reason for Consult: Increased blood pressure, despite medication regime. Pt was given Clonidine 0.1mg at 1311 with no positive effect. Pt is states that his hed is fuzzy and has a bit of a headache. Dr. Butt requesting consult Time Notified: 15:51 Call Completed: Yes Discharging clinician: Miguelina Butt Assessment and Plan - Patient/Caregiver Discharge Instructions Activity: resume usual activities as tolerated Diet: regular diet - Follow up Plan Follow up with: [facility], [facility] [Other] (Deidre will be able to re- start services with you. She is currently out of the office. She requests you call her on 05/17/2017, and she will get you scheduled for a mental health counseling session.) [facility] [place] [Outside] - 06/07/17 2:15 pm (The above appointment is with Dr. Jones for primary health care and medication management services. Please arrive 15 minutes early for your new patient appointment, and bring the following items with you: insurance card (if you do not have insurance bring proof of income to apply for the sliding fee scale), photo ID, and any medication you take in the original bottles. If you are unable to bring these items, your appointment will be rescheduled. If you are unable to keep this appointment, 24 hour business notice of cancellation is expected. If you miss your new patient appointment, you cannot be re-scheduled in this practice for 3 months. This practice does not prescribe narcotics or see [facility] benefit recipients. ) [facility] [place] [Outside] - 05/31/17 10:30 am (The above appointment is with Dr. Sonal Camp for outpatient psychiatric assessment and medication management services. Please arrive 15 minutes early to complete paperwork. Please bring your insurance card, photo ID and medications in their original bottles. If you do not have insurance, bring proof of income to apply for the sliding fee scale. If you are unable to keep this appointment, 24 hour business notice of cancellation is expected. This is the first available appointment. You may contact the office regularly to check for cancellations that may allow you to be seen sooner. ) Overall status at discharge: Stable Disposition: Home, Self-Care Hospital Course Hospital course: Mr. Cespedes is a 62 year old male admitted to inpatient psychiatric unit for safety and stabilization. Patient's home medications were continued and reviewed. Throughout the hospital course patient's sertraline was decreased and discontinued and patient's vibrated was continued. Patient was also started on cymbalta for depression/anxiety and with mood symptom stabilization. Patient did not exhibit any side effects to medication he was med compliant while he was on the unit patient participated in groups and was socializing with peers. Patient's sleep and appetite was fair. Patient denied any suicide or homicide ideations. Patient denied any thoughts of self-harm. Patient reports being interested in outpatient medication management and counseling. Patient was discussed for discharge due to patient not being a threat to himself or anyone else. general distillery worker did make contact with patients brother. Patient will be returning home on discharge. Time spent discussing smoking cessation with patient: 3 to 10 minutes Does patient wish to continue nicotine replacement upon disc: No - Time Spent with Patient Total time spent providing and/or coordinating discharge services: Less than 30 minutes Quality - Multiple Antipsychotics Patient discharged on 2 or more antipsychotic medications: No Mental Status Exam - Mental Status Exam Patient orientation: Yes Person, Yes Time, Yes Place, Yes Circumstance Level of alertness: Alert Patient appearance: Appropriate Behavior: calm Psychomotor activity: Normal Eye contact: Maintains Eye Contact Mood description: Euthymic/stable Affect description: congruent with mood Speech pattern: Normal rate, Normal rhythm, Normal tone Speech Volume: Normal Thought process: Intact Thought Content: Yes Intact Judgment: Fair Insight: Full
== END 2017-05-17 15:10 | disposition home or self-care (01) | DRG 885 ==
LOC: EMEROO 12:25 → 1ANU 12:25 → SUATTDRO 21:01
PROVIDERS: ADMIT Psychiatry & Neurology Psychiatry; ATTEND Psychiatry & Neurology Psychiatry